=== PATIENT | male | born 1960 | race Caucasian/White ===

== ENCOUNTER 2018-08-13 10:21 | Day surgery (SDC) | payer OTHER ==
[~2018-08-13] VITALS: Ht 182.9 cm; Wt 126.1 kg
[~2018-08-13 10:21] MED LIST: ALBU90OI6 INH; Aspirin EC81 MG PO; BENA20 PO; BIOTIN2500 MCG PO; CHOL10002 PO; FLUSAL2505 INH; FOLI1 PO; GABA100 PO; GLIP10 PO; LEVSOD100 PO; Micro-K10 MEQ PO; NIACIN ER1000 MG PO; OMEP20ER PO; OXYACE5T PO; PRAV20 PO; QUET100 PO; SERT100 PO; TERA5 PO; VITAMIN E400 UNIT PO
--- NOTE | 2018-08-13 10:40 | NUR ---
History, Chart, Medications and Allergies reviewed before start of procedure. Patient confirms NPO status and agrees with scheduled surgery. Patient States Post-Procedure ride home has been arranged with his sister, Tari.
--- NOTE | 2018-08-13 10:52 | NUR ---
Lungs clear T/O to Auscultation.
--- NOTE | 2018-08-13 11:01 | NUR ---
PATIENT STATES HE LEFT HIS DENTURES AT HOME.
--- NOTE | 2018-08-13 11:06 | NUR ---
08/13/18 1106 Cyndie Arriaza History, Chart, Medications and Allergies reviewed before start of procedure. PATIENT CONFIRMS NPO STATUS AND AGREES WITH SCHEDULED PROCEDURE. MONITOR INTACT WITH CONTINUOUS PULSE OXIMETRY AND INTERMITTENT BP. O2 VIA N/C INTACT THROUGHOUT SEDATION/PROCEDURE. 3-LEAD EKG REVIEWED WITH PHYSICIAN PRIOR TO START OF PROCEDURE. PATIENT DETERMINED TO BE ASA APPROPRIATE FOR PROPOFOL SEDATION PRIOR TO START OF PROCEDURE BY DR. COLLINS.
== END 2018-08-13 12:10 | disposition home or self-care (01) ==
LOC: ORSCMMR 10:21 → ORD 11:30 → ORSCMMR 11:30
PROVIDERS: Internal Medicine Gastroenterology
PROC: 0DBP8ZX Excision of Rectum, Via Natural or Artificial Opening Endoscopic, Diagnostic (ICD-10-PCS; principal; 2018-08-13 11:30)
PROC: 0DBH8ZX Excision of Cecum, Via Natural or Artificial Opening Endoscopic, Diagnostic (ICD-10-PCS; principal; 2018-08-13 11:30)
PROC: 0DBN8ZX Excision of Sigmoid Colon, Via Natural or Artificial Opening Endoscopic, Diagnostic (ICD-10-PCS; principal; 2018-08-13 11:30)
DX: Z12.11 Encounter for screening for malignant neoplasm of colon (principal); Z86.010 Personal history of colon polyps; D12.0 Benign neoplasm of cecum; D12.5 Benign neoplasm of sigmoid colon; K62.1 Rectal polyp; K64.8 Other hemorrhoids; E11.9 Type 2 diabetes mellitus without complications; I10 Essential (primary) hypertension; Z86.73 Personal history of transient ischemic attack (TIA), and cerebral infarction without residual deficits; F32.9 Major depressive disorder, single episode, unspecified; Z79.899 Other long term (current) drug therapy
CPT/HCPCS: 82947; 88305; J7120

== ENCOUNTER → 2021-05-20 | Outpatient (CLI) | payer OTHER | END | disposition home or self-care (01) | LOC: LAB SHORT 09:40 | DX: E03.9 Hypothyroidism, unspecified (principal) | CPT/HCPCS: 84443 ==